=== PATIENT | male | born 1940 | race Caucasian/White ===

== ENCOUNTER 2018-11-14 07:36 | Emergency (ER) | payer MEDICARE ==
[~2018-11-14] VITALS: Ht 182.9 cm; Wt 86.4 kg
[2018-11-14] MEDS ORDERED: CEPH500C5 PO (08:45)
[2018-11-14 08:53] VITALS: BP 137/81
== END 2018-11-14 08:55 | disposition home or self-care (01) ==
LOC: ER 07:38
DX: L98.9 Disorder of the skin and subcutaneous tissue, unspecified (principal); Z79.2 Long term (current) use of antibiotics
CPT/HCPCS: 99283